=== PATIENT | male | born 1995 | race Caucasian/White ===

== ENCOUNTER 2020-01-19 03:01 | Emergency (ER) | payer OTHER, SELFPAY ==
[2020-01-19 03:02] VITALS: BP 109/62; PULSE 73; RESP 22; TEMP 36.4; O2SAT 100; BMI 26.6
--- NOTE | 2020-01-19 05:34 | ED.PSYCH ---
HPI - Psych General Chief Complaint: Neuro Symptoms/Deficit Stated Complaint: diff speaking Time Seen by Provider: 01/19/20 03:14 Source: patient Mode of arrival: ambulatory Limitations: no limitations History of Present Illness HPI Narrative: This is a 24-year-old male who is a poor historian but states that he when out on the balcony to smoke which he later clarified was marijuana and subsequently developed feeling of uncertainty which was accompanied by palpitations and chest tightness as well as feeling like he could not get enough oxygen and he began breathing faster and then developed tingling in bilateral upper extremities. Patient denies any past medical history of anxiety, or medications. However, later he then endorses that he did speak with a therapist but does not know who and does not know when. Otherwise, he denies fevers, chills, nausea, vomiting, GI symptoms, or symptoms. Related Data Previous Rx's Medication Instructions Recorded hydroxyzine HCl 25 mg PO TID PRN #10 tab 01/19/20 Allergies Allergy/AdvReac Type Severity Reaction Status Date / Time sulfamethoxazole Allergy Unknown UNKNOWN Unverified 10/23/19 16:39 [From BACTRIM] trimethoprim [From BACTRIM] Allergy Unknown UNKNOWN Unverified 10/23/19 16:39 Review of Systems Review of Systems: Pertinent positives and negatives as stated in HPI 10 point review of systems otherwise negative. PMFSH Past Medical History Source: nursing notes reviewed Medical History Anxiety Asthma Depression Hypertension Social History Social History Advance Directives: No Physical Exam Vital Signs: Vital Signs: Last Vital Signs Temp 97.5 F 01/19/20 03:02 Pulse 73 01/19/20 03:02 Resp 22 H 01/19/20 03:02 BP 109/62 01/19/20 03:02 Pulse Ox 100 01/19/20 03:02 Body Mass Index 26.6 VITAL SIGNS: Reviewed. GENERAL: Well developed, well nourished, in no acute distress. HEAD: Normocephalic/atraumatic, EYES: PERRLA, EOMI intact without pain, no nystagmus/pallor/icterus noted EARS: Ext canals without abnormality, TMs non-bulging and non-erythematous NOSE: Nares patent bilateral OROPHARYNX: no oral lesions noted, posterior pharynx clear and non-erythematous without noted tonsillar enlargement/erythema/exudates NECK: Supple, no adenopathy LUNGS: Normal breath sounds. No adventitious sounds or accessory muscle use. SpO2<100> CARDIOVASCULAR: Regular rate and rhythm without noted murmurs, no JVD or lower extremity edema. ABDOMEN: Soft, non-tender, non-distended with bowel sounds. No rigidity. No guarding. No palpable masses or hernias noted MUSCULOSKELETAL: No tenderness, deformities, or effusions noted on gross inspection. EXTREMITIES: No cyanosis, clubbing or edema. SKIN: Inspection of the skin reveals no rashes, ulcerations, jaundice, pallor, or petechiae. NEUROLOGIC: Alert and oriented x 4. Strength and sensation to light touch were grossly intact x 4. PSYCH: Flat affect Course Course Course Narrative: This is a 24-year-old male with history and clinical presentation consistent with carpal pedal symptoms secondary to hyperventilation after having smoked marijuana. Patient is reluctant in sharing his psychiatric history and has changed his story a few times. Will evaluate for any underlying medical abnormalities, but feel that this is secondary to underlying history of depression anxiety likely exacerbated by marijuana use. -labs, UA, U tox, POC glucose On review of all investigation there are no acute findings to suggest electrolyte or infectious etiologies for patient's symptoms. Patient denies any intent to harm himself but would like to get references for outpatient help in talking to somebody. MDM - Psych Restraints Face to Face Assessment: Face to Face Assessment: Current Situation: After assessment of the patient, a review of the pertinent medical record and a discussion with nursing staff, I feel the patient requires a restrain intervention. Reaction To: [] Medical Condition: [] Behavioral State: [] Continued Need: [] Lab Data Result diagrams: 01/19/20 06:02 01/19/20 06:02 Labs: Lab Results 01/19/20 01/19/20 01/19/20 Range/Units 06:02 06:02 06:02 WBC 10.1 (4.8-10.8) X10*3/uL RBC 4.93 (4.60-5.80) X10*6/uL Hgb 15.0 (14.0-18.0) g/dl Hct 43.6 (42-52) % MCV 88.4 (80-98) fL MCH 30.4 (27.0-33.0) pg MCHC 34.4 (31.0-36.0) g/dl RDW 13.2 (11.0-16.0) % Plt Count 191 (160-400) X10*3/uL MPV 10.4 (9.4-12.4) fL Immature Gran % (Auto) 0.2 (0.0-0.4) % Neut % (Auto) 81.6 H (45-73) % Lymph % (Auto) 10.4 L (20-40) % [place] % (Auto) 7.0 (2-11) % Eos % (Auto) 0.4 (0-4) % Baso % (Auto) 0.4 (0-2) % Lymph # (Auto) 1.1 L (1.2-4.9) X10*3/uL [place] # (Auto) 0.7 (0.1-1.2) X10*3/uL Eos # (Auto) 0.0 (0.0-0.4) X10*3/uL Baso # (Auto) 0.0 (0.0-0.2) X10*3/uL Abs Immat Gran (auto) 0.02 (0.00-0.03) X10*3/uL Absolute Neuts (auto) 8.2 (2.0-8.3) X10*3/uL Absolute Nucleated RBC 0.000 (0.0-0.012) X10*3/uL Nucleated RBC % (auto) 0.0 (0.0-0.2) /100WBC Sodium 140 (135-145) mmol/L Potassium 3.7 (3.3-5.1) mmol/l Chloride 104 (96-108) mmol/L Carbon Dioxide 29 (22-29) mmol/L Anion Gap 11 L (12-20) BUN 15 (9-16) mg/dL Creatinine 0.99 (0.5-1.4) mg/dL Estim Creat Clear Calc 102.9 Estimated GFR > 60 POC Glucose (60-115) mg/dL Random Glucose 106 (60-115) mg/dL Calcium 9.0 (8.4-10.2) mg/dL Total Bilirubin 0.6 (0.0-1.0) mg/dL AST 23 (5-37) U/L ALT 19 (0-40) U/L Alkaline Phosphatase 79 (39-117) U/L Total Protein 7.3 (6.5-8.0) g/dL Albumin 4.5 (3.5-5.0) g/dL Urine Opiates Screen Not Detected (Not Detect) Ur Barbiturates Screen Not Detected (Not Detect) Ur Phencyclidine Scrn Not Detected (Not Detect) Ur Amphetamines Screen Not Detected (Not Detect) U Benzodiazepines Scrn Not Detected (Not Detect) Urine Cocaine Screen Not Detected (Not Detect) U Marijuana (THC) Screen POSITIVE H (Not Detect) 01/19/20 Range/Units 06:39 WBC (4.8-10.8) X10*3/uL RBC (4.60-5.80) X10*6/uL Hgb (14.0-18.0) g/dl Hct (42-52) % MCV (80-98) fL MCH (27.0-33.0) pg MCHC (31.0-36.0) g/dl RDW (11.0-16.0) % Plt Count (160-400) X10*3/uL MPV (9.4-12.4) fL Immature Gran % (Auto) (0.0-0.4) % Neut % (Auto) (45-73) % Lymph % (Auto) (20-40) % [place] % (Auto) (2-11) % Eos % (Auto) (0-4) % Baso % (Auto) (0-2) % Lymph # (Auto) (1.2-4.9) X10*3/uL [place] # (Auto) (0.1-1.2) X10*3/uL Eos # (Auto) (0.0-0.4) X10*3/uL Baso # (Auto) (0.0-0.2) X10*3/uL Abs Immat Gran (auto) (0.00-0.03) X10*3/uL Absolute Neuts (auto) (2.0-8.3) X10*3/uL Absolute Nucleated RBC (0.0-0.012) X10*3/uL Nucleated RBC % (auto) (0.0-0.2) /100WBC Sodium (135-145) mmol/L Potassium (3.3-5.1) mmol/l Chloride (96-108) mmol/L Carbon Dioxide (22-29) mmol/L Anion Gap (12-20) BUN (9-16) mg/dL Creatinine (0.5-1.4) mg/dL Estim Creat Clear Calc Estimated GFR POC Glucose 124 H (60-115) mg/dL Random Glucose (60-115) mg/dL Calcium (8.4-10.2) mg/dL Total Bilirubin (0.0-1.0) mg/dL AST (5-37) U/L ALT (0-40) U/L Alkaline Phosphatase (39-117) U/L Total Protein (6.5-8.0) g/dL Albumin (3.5-5.0) g/dL Urine Opiates Screen (Not Detect) Ur Barbiturates Screen (Not Detect) Ur Phencyclidine Scrn (Not Detect) Ur Amphetamines Screen (Not Detect) U Benzodiazepines Scrn (Not Detect) Urine Cocaine Screen (Not Detect) U Marijuana (THC) Screen (Not Detect) Discharge Plan Discharge Clinical Impression: Anxiety reaction Patient Disposition: Home, Self-Care Instructions: Anxiety (ED) Additional Instructions: Please do not hesitate to return to the emergency room since you have any worsening depressive symptoms, feelings like he want to harm yourself or others. You have been provided with referral information as a resource to speak to somebody in the outpatient setting. Prescriptions: New hydroxyzine HCl 25 mg tablet 25 mg PO TID PRN (Reason: anxiety) Qty: 10 RF: 0 Referrals: [facility] [Physician] - 2 days (Please evaluate and treat for history depression as patient wishes to speak with someone in the outpatient setting.)
[2020-01-19 06:08] LABS: Basophils Percent Auto 0.4 % (0-2); Eosinophils Percent Auto 0.4 % (0-4); Hematocrit 43.6 % (42-52); Imm Gran Abs Auto 0.02 X10*3/uL (0.00-0.03); Imm Gran Pct Auto 0.2 % (0.0-0.4); Lymphocytes Absolute Auto 1.1 X10*3/uL (1.2-4.9); Lymphocytes Percent Auto 10.4 % (20-40); MANUAL DIFF FLAG NO; Mean Corpuscular HGB Conc 34.4 g/dl (31.0-36.0); Mean Corpuscular Hemoglobin 30.4 pg (27.0-33.0); Mean Corpuscular Volume 88.4 fL (80-98); Mean Platelet Volume 10.4 fL (9.4-12.4); Monocytes Absolute Auto 0.7 X10*3/uL (0.1-1.2); Neutrophils Absolute Auto 8.2 X10*3/uL (2.0-8.3); Neutrophils Percent Auto 81.6 % (45-73); Platelet Count 191 X10*3/uL (160-400); Red Blood Count 4.93 X10*6/uL (4.60-5.80); Red Cell Distribution Width 13.2 % (11.0-16.0); White Blood Count 10.1 X10*3/uL (4.8-10.8)
[2020-01-19 06:42] LABS: Glucose, Whole Blood 124 mg/dL (60-115)
[2020-01-19 06:44] LABS: Amphetamine Screen Urine Not Detected (Not Detect); Barbiturates, Urine Not Detected (Not Detect); Benzodiazepines Screen Urine Not Detected (Not Detect); Cannabinoid Screen Urine POSITIVE (Not Detect); Cocaine Screen Urine Not Detected (Not Detect); Opiate Screen Urine Not Detected (Not Detect); Phencyclidine Screen Urine Not Detected (Not Detect)
[2020-01-19 06:47] LABS: Alanine Aminotransferase 19 U/L (0-40); Albumin Level 4.5 g/dL (3.5-5.0); Alkaline Phosphatase 79 U/L (39-117); Anion Gap 11 (12-20); Aspartate Amino Transferase 23 U/L (5-37); Bilirubin Total 0.6 mg/dL (0.0-1.0); Blood Urea Nitrogen 15 mg/dL (9-16); Carbon Dioxide 29 mmol/L (22-29); Chloride 104 mmol/L (96-108); Creatinine Clr Calc Pharmacy 102.9; Estimated Glomerular Filt Rate > 60; Glucose Random 106 mg/dL (60-115); Potassium 3.7 mmol/l (3.3-5.1); Sodium 140 mmol/L (135-145); Total Protein 7.3 g/dL (6.5-8.0)
[2020-01-19] MEDS: hydrOXYzine HCL 50 MG TABLET PO (07:41)
== END 2020-01-19 07:46 | disposition home or self-care (01) ==
PROVIDERS: Emergency Provider Student in an Organized Health Care Education/Training Program
DX: F41.1 Generalized anxiety disorder (principal); I10 Essential (primary) hypertension; F12.90 Cannabis use, unspecified, uncomplicated
CPT/HCPCS: 36415; 80053; 80307; 82947; 85025; 99283

== ENCOUNTER 2022-12-11 09:36 | Outpatient (AMB) | payer OTHER, SELFPAY ==
--- NOTE | 2022-12-11 10:41 | AM.OFFWIN_ITS ---
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 Patient states pain is moving from the leg up also began Sunday morning, Pain started from a tic bite. Patient Tobacco Use Status: Never used Tobacco Allergies sulfamethoxazole [From BACTRIM] Allergy (Unknown, Verified 12/11/22 10:47) UNKNOWN trimethoprim [From BACTRIM] Allergy (Unknown, Verified 12/11/22 10:47) UNKNOWN Do you need a note to return to daycare/school/sports/work: Yes HPI SEARCH MARKETING COORDINATOR/left leg pain(lobby) 2 HPI0 Details Patient presents with discomfort in his left inner thigh since yesterday. As he was inspecting his leg he noticed a tick attached to his distal thigh. He is unsure how long the tick was in place it was engorged she removed it easily this occurred yesterday.. He notes he continues to have tenderness radiating to his groin. He denies groin pain prior to the tick. Denies testicular pain or swelling or other symptoms. Denies headache, fever, joint pain, other rash. [facility] Medical History Anxiety Asthma Depression Hypertension Social History Patient Tobacco Use Status: Never used Tobacco Review of Systems Const Reports as per HPI and Reports no additional complaints Reports no additional complaints and Reports as per HPI Musc Reports no additional complaints and Reports as per HPI Skin/Breast Denies lesions Neuro Reports no additional complaints and Reports as per HPI Physical Exam Vital Signs: Last Vital Signs Pulse 73 12/11/22 10:47 BP 132/80 12/11/22 10:47 Pulse Ox 99 12/11/22 10:47 Oxygen Delivery Method Room Air 12/11/22 10:47 BMI result Body Mass Index 27.1 Const General: cooperative, comfortable and no acute distress Orientation/consciousness: patient oriented x3 Resp Effort & Inspection: normal respiratory effort Auscultation: clear to auscultation bilaterally Cardio Rate: regular rate Rhythm: regular rhythm Heart sounds: S1 normal heart sound present and S2 normal heart sound present Male General Exam: No edema, No erythema, No hernia and No inguinal lymphadenopathy Scrotum: scrotum normal Testes: Testes normal Neuro General: patient oriented x3 Extrem Upper/lower leg/hip images: 2 1. Small puncture wound without signs or symptoms infection consistent with tick bite Assessment & Plan Assessment & Plan (1) Tick bite: Code(s): W57.XXXA - Bitten or stung by nonvenomous insect and other nonvenomous arthropods, initial encounter Qualifiers: Encounter type: initial encounter Site of tick bite: thigh Laterality: left Qualified Code(s): S70.362A - Insect bite (nonvenomous), left thigh, initial encounter; W57.XXXA - Bitten or stung by nonvenomous insect and other nonvenomous arthropods, initial encounter Plan: Given Lyme disease being endemic in our local area and he is experiencing some diffuse pain will treat with doxycycline b.i.d. times 14 days. Return to clinic if he develops further symptoms or symptoms do not improve. Medications: New 2 doxycycline hyclate 100 mg PO BID 14 days 28 caps 0RF Coding Level of Care Code Est Pt Level 3 (04985) Diagnoses Tick bite of left thigh, initial encounter S70.362A; W57.XXXA Encounter type: initial encounter Site of tick bite: thigh Laterality: left
[2022-12-11 10:47] VITALS: BP 132/80; PULSE 73; O2SAT 99; BMI 27.1
== END 2022-12-11 11:00 | disposition home or self-care (01) ==
PROVIDERS: Visit Provider Physician Assistant
DX: S70.362A Insect bite (nonvenomous), left thigh, initial encounter (principal); W57.XXXA Bitten or stung by nonvenomous insect and other nonvenomous arthropods, initial encounter
CPT/HCPCS: 99213

== ENCOUNTER 2023-06-12 22:24 | Emergency (ER) | payer OTHER, SELFPAY ==
--- NOTE | ~2023-06-12 | CT_ITS ---
EXAMINATION: CT ABDOMEN AND PELVIS WITH CONTRAST CLINICAL INFORMATION: Reason for Exam Periumbilical pain with nausea and vomiting COMPARISON: 06/25/2017 TECHNIQUE: Multidetector volumetric images were obtained from the superior aspect of the liver through the pubic symphysis following administration 85 mL of Omnipaque 350 intravenous contrast. Sagittal and coronal reformatted images were obtained on the technologist's workstation. Oral contrast: No This CT examination was performed using dose optimization techniques as appropriate, variously including the following: *Automated exposure control *Adjustment of mA and/or kV according to patient size (this includes techniques or standardized protocols for targeted exams where dose is matched to indication/reason for exam; i.e. extremities or head) *Use of iterative reconstruction technique DLP: 439 mGy-cm FINDINGS: LUNG BASES: The visualized lung bases are unremarkable. LIVER, GALLBLADDER, AND BILIARY TREE: The liver is normal in size, shape, and attenuation. A small focal region of hypoattenuation adjacent to the falciform ligament could be due to focal fatty infiltration or alterations in hepatic perfusion. No biliary ductal dilatation is present. The gallbladder is physiological distended with no densely calcified gallstones. PANCREAS: Unremarkable. SPLEEN: Unremarkable. ADRENAL GLANDS: Unremarkable. KIDNEYS AND URETERS: Mildly prominent bilateral extrarenal pelvises, right greater than left and similar to prior, without appreciable obstructing calculus. Bilateral nephrograms are symmetric. BLADDER: Unremarkable. GASTROINTESTINAL TRACT: No evidence of bowel obstruction or significant wall thickening. Fluid is seen within some segments of the colon, a finding which can be associated with diarrhea. Appendix appears nondilated. No free fluid or free air is seen. ABDOMINAL WALL: No significant hernia is appreciated. LYMPH NODES: Normal. VASCULAR: Unremarkable. PELVIC VISCERA: Unremarkable. OSSEOUS STRUCTURES: Unremarkable. CT/CT abdomen pelvis w IV con IMPRESSION: 1. No acute findings identified in the abdomen/pelvis. Fluid is seen within some segments of the colon, a finding which can be associated with diarrhea. 2. Redemonstrated prominent bilateral renal pelvises, right greater than left and without significant change from 06/25/2017.
[2023-06-12 22:36] VITALS: BP 135/86; PULSE 83; RESP 20; TEMP 35.9; O2SAT 98; BMI 29.9
[2023-06-12] MEDS: Ondansetron ODT 4 MG TAB.RAPDIS TRANSLINGU (22:40)
[2023-06-12 23:32] LABS: MANUAL DIFF FLAG NO
[2023-06-12 23:35] LABS: Basophils Percent Auto 0.3 % (0-2); Eosinophils Percent Auto 0.6 % (0-4); Hematocrit 44.2 % (42.0-52.0); Hemoglobin 15.1 g/dl (14.0-18.0); Imm Gran Abs Auto 0.02 X10*3/uL (0.00-0.03); Imm Gran Pct Auto 0.3 % (0.0-0.4); Lymphocytes Absolute Auto 0.5 X10*3/uL (1.2-4.9); Lymphocytes Percent Auto 8.7 % (20-40); Mean Corpuscular HGB Conc 34.2 g/dl (31.0-36.0); Mean Corpuscular Hemoglobin 29.5 pg (27.0-33.0); Mean Corpuscular Volume 86.5 fL (80.0-98.0); Mean Platelet Volume 10.4 fL (9.4-12.4); Monocytes Absolute Auto 0.4 X10*3/uL (0.1-1.2); Monocytes Percent Auto 6.9 % (2-11); Neutrophils Absolute Auto 5.2 x10*3/uL (2.0-8.3); Neutrophils Percent Auto 83.2 % (45-73); Platelet Count 237 X10*3/uL (160-400); Red Blood Count 5.11 X10*6/uL (4.60-5.80); Red Cell Distribution Width 13.4 % (11.0-16.0); White Blood Count 6.2 X10*3/uL (4.8-10.8)
[2023-06-12 23:49] LABS: Alanine Aminotransferase 17 U/L (0-40); Albumin Level 4.3 g/dL (3.5-5.0); Alkaline Phosphatase 80 U/L (39-117); Anion Gap 15 (12-20); Aspartate Amino Transferase 19 U/L (5-37); Bilirubin Total 0.9 mg/dL (0.0-1.0); Blood Urea Nitrogen 12 mg/dL (9-16); Calcium 9.3 mg/dL (8.4-10.2); Carbon Dioxide 23 mmol/L (22-29); Chloride 105 mmol/L (96-108); Creatinine Clr Calc Pharmacy 112.8; Estimated Glomerular Filt Rate > 60; Glucose Random 100 mg/dL (60-115); Lipase 13 U/L (8-78); Magnesium 1.5 mg/dL (1.6-2.6); Potassium 3.4 mmol/L (3.3-5.1); Sodium 140 mmol/L (135-145); Total Protein 7.7 g/dL (6.5-8.0)
[2023-06-13 00:12] LABS: Influenza A PCR NEGATIVE (Negative); Influenza B PCR NEGATIVE (Negative); Resp Syncy Virus RNA Qual PCR NEGATIVE (Negative); SARS COV2 PCR INHOUSE NEGATIVE (Negative)
[2023-06-13 00:56] VITALS: BP 128/66; PULSE 66; RESP 18; TEMP 37; O2SAT 94
--- NOTE | 2023-06-13 01:14 | PC.NURSE ---
n/v/d all day. pt reports trying to eat light snack prior to come in. unable to keep food or pedialyte down. reports vomiting before ED arrival. pt visibly uncomfortable, unable to sit still d/t pain. pain with palpation, upper abd. reports zofran helped minimally
[2023-06-13] MEDS: ondansetron HCL 4 MG/2 ML VIAL IVPUSH (02:09)
[2023-06-13] MEDS: 0.9 % Sodium Chloride 1,000 ML 999 ML IV (02:10)
--- NOTE | 2023-06-13 02:12 | ED_ITS ---
HPI - Abdominal Pain General Chief Complaint: Nausea/Vomiting/Diarrhea Stated Complaint: vomiting Time Seen by Provider: 06/13/23 01:10 Source: patient Mode of arrival: ambulatory History of Present Illness HPI narrative: 27-year-old male reports that he woke up this morning between 3-04:00 with significant periumbilical pain and began having multiple episodes of nausea, vomiting throughout the day as well as diarrhea, denies any contaminated food consumption or sick contacts, states he has been having chills and subjective fevers, denies alcohol or marijuana use. Related Data Previous Rx's ?Medication ?Instructions ?Recorded doxycycline hyclate 100 mg capsule 100 mg PO BID 14 days #28 caps 12/11/22 ondansetron 4 mg disintegrating 4 mg PO Q8H PRN nausea and 06/13/23 tablet vomiting 4 days #7 tabs Allergies Allergy/AdvReac Type Severity Reaction Status Date / Time sulfamethoxazole Allergy Unknown UNKNOWN Verified 06/12/23 22:38 [From BACTRIM] trimethoprim [From BACTRIM] Allergy Unknown UNKNOWN Verified 06/12/23 22:38 Review of Systems Review of Systems Pertinent positives and negatives as stated in HPI PMFSH Past Medical History Source: nursing notes reviewed Medical History Anxiety Depression Asthma Hypertension Social History Social History Patient Tobacco Use Status: Never used Tobacco Smoked in Last 30 Days: No Use of substances other than those prescribed or required for medical reasons: No Advance Directives: No Advance Directives Information Provided: Yes Do you have a plan to hurt others: No Plan Physical Exam ED Vital Signs: Vital Signs - 24 hr 06/12/23 22:36 06/13/23 00:56 06/13/23 03:11 Temperature 96.6 F L 98.6 F 96.8 F Pulse Rate 83 66 75 Respiratory Rate 20 18 16 Blood Pressure 135/86 128/66 142/70 H Pulse Oximetry 98 94 100 Oxygen Delivery Method Room Air Room Air Room Air BMI result Body Mass Index 29.9 VITAL SIGNS: Reviewed. GENERAL: Well developed, well nourished, in no acute distress. HEAD: Normocephalic/atraumatic EYES: PERRLA, EOMI LUNGS: Normal breath sounds. No adventitious sounds or accessory muscle use. SpO2<94> CARDIOVASCULAR: Regular rate and rhythm without noted murmurs ABDOMEN: Soft, periumbilical/right lower quadrant, non-distended with bowel sounds. MUSCULOSKELETAL: No tenderness, deformities, or effusions noted on gross inspection. EXTREMITIES: No cyanosis, clubbing or edema. SKIN: Inspection of the skin reveals no rashes NEUROLOGIC: Alert and oriented x 4. Strength and sensation to light touch were grossly intact x 4. Medical Decision Making Medical Decision Making [facility] Narrative: 27-year-old male with history and clinical presentation, DDX: Gastroenteritis, food poisoning, appendicitis I reviewed all investigations and hematologic indices negative for leukocytosis/anemia/thrombocytopenia. Chemistry indices negative for any acute findings other than low magnesium which was repleted with 400 mg of magnesium oxide. Viral testing negative for influenza/RSV/COVID-19. Patient received IV fluids, antiemetics, pain medication. CT scan demonstrates evidence to suggest a gastroenteritis, otherwise no mention of colitis/appendicitis. P.o. challenge Differential Diagnosis Differential Diagnoses: The differential diagnosis associated with the presentation includes Please see the discussion above Admission/Observation Consideration of admission/observation: Escalation of care including admission/observation considered Please see the discussion above Lab Data [facility] Lab Attestation statement: I reviewed the patient's lab results. Please see the discussion above 06/12/23 23:13 06/12/23 23:13 Labs: Lab Results 06/12/23 06/13/23 Range/Units 23:13 02:04 WBC 6.2 (4.8-10.8) X10*3/uL RBC 5.11 (4.60-5.80) X10*6/uL Hgb 15.1 (14.0-18.0) g/dl Hct 44.2 (42.0-52.0) % MCV 86.5 (80.0-98.0) fL MCH 29.5 (27.0-33.0) pg MCHC 34.2 (31.0-36.0) g/dl RDW 13.4 (11.0-16.0) % Plt Count 237 (160-400) X10*3/uL MPV 10.4 (9.4-12.4) fL Immature Gran % (Auto) 0.3 (0.0-0.4) % Neut % (Auto) 83.2 H (45-73) % Lymph % (Auto) 8.7 L (20-40) % [place] % (Auto) 6.9 (2-11) % Eos % (Auto) 0.6 (0-4) % Baso % (Auto) 0.3 (0-2) % Lymph # (Auto) 0.5 L (1.2-4.9) X10*3/uL [place] # (Auto) 0.4 (0.1-1.2) X10*3/uL Eos # (Auto) 0.0 (0.0-0.4) X10*3/uL Baso # (Auto) 0.0 (0.0-0.2) X10*3/uL Abs Immat Gran (auto) 0.02 (0.00-0.03) X10*3/uL Absolute Neuts (auto) 5.2 (2.0-8.3) x10*3/uL Absolute Nucleated RBC 0.000 (0.0-0.012) X10*3/uL Nucleated RBC % (auto) 0.0 (0.0-0.2) /100WBC Sodium 140 (135-145) mmol/L Potassium 3.4 (3.3-5.1) mmol/L Chloride 105 (96-108) mmol/L Carbon Dioxide 23 (22-29) mmol/L Anion Gap 15 (12-20) BUN 12 (9-16) mg/dL Creatinine 0.99 (0.5-1.4) mg/dL Estim Creat Clear Calc 112.8 Estimated GFR > 60 Random Glucose 100 (60-115) mg/dL Lactic Acid 1.0 (0.5-2.0) mmol/L Calcium 9.3 (8.4-10.2) mg/dL Magnesium 1.5 L (1.6-2.6) mg/dL Total Bilirubin 0.9 (0.0-1.0) mg/dL AST 19 (5-37) U/L ALT 17 (0-40) U/L Alkaline Phosphatase 80 (39-117) U/L Total Protein 7.7 (6.5-8.0) g/dL Albumin 4.3 (3.5-5.0) g/dL Lipase 13 (8-78) U/L Influenza Type A (PCR) NEGATIVE (Negative) Influenza Type B (PCR) NEGATIVE (Negative) RSV RNA Qual (PCR) NEGATIVE (Negative) SARS-CoV-2 RNA (RT-PCR) NEGATIVE (Negative) Radiology Impression Discussion of test interpretation with radiology: I have reviewed the radiologist's reading. Radiologist Impression: Please see the discussion above External Record Review External record reviewed: Outpatient record and Prior outpatient labs Medications Administered Discontinued Medications Generic Name Dose Route Start Last Admin Trade Name Freq PRN Reason Stop Dose Admin Sodium Chloride 1,000 mls @ 999 mls/hr 06/13/23 02:00 06/13/23 03:12 Ns IV 06/13/23 03:00 Infused .Q1H1M JOSE Infusion Iohexol 85 ml 06/13/23 02:48 06/13/23 02:49 Iohexol 350 Mg/Ml 100 Ml Infus..Btl IV 06/13/23 02:49 85 ml ONCE ONE Administration Ketorolac Tromethamine 15 mg 06/13/23 02:55 06/13/23 02:58 Ketorolac Tromethamine 30 Mg/Ml Vial IVPUSH 06/13/23 02:56 15 mg ONCE ONE Administration Ondansetron HCl 4 mg 06/12/23 22:39 06/12/23 22:40 Ondansetron Odt 4 Mg Tab.Rapdis TRANSLINGU 06/12/23 22:40 4 mg ONCE ONE Administration Ondansetron HCl 4 mg 06/13/23 01:50 06/13/23 02:09 Ondansetron Hcl 4 Mg/2 Ml Vial IVPUSH 06/13/23 01:51 4 mg ONCE ONE Administration Critical Care Time Critical Care Time Critical Care Time: Yes Total Critical Care Time: 30 Attestation: I personally attest to this time spent taking care of the patient. Discharge Plan Discharge Clinical Impression: Gastroenteritis, Dehydration, Hypomagnesemia Patient Disposition: Home, Self-Care Instructions: Dehydration (ED), Gastroenteritis (ED), Hypomagnesemia (ED), Nutrition Tips for Relief of Diarrhea (ED) Additional Instructions: Follow-up with your primary care doctor. Prescriptions: New ondansetron 4 mg tablet,disintegrating 4 mg PO Q8H PRN (Reason: nausea and vomiting) 4 Days Qty: 7 0RF No Action doxycycline hyclate 100 mg capsule 100 mg PO BID 14 Days Qty: 28 0RF Print Language: Arabic
--- NOTE | 2023-06-13 02:22 | PC.NURSE ---
lab work obtained, IV placed, pt medicated per APR. pt waiting for CT
[2023-06-13] MEDS: iohexoL 350 MG/ML 100 ML INFUS..BTL 85 ML IV (02:49)
[2023-06-13] MEDS: Ketorolac Tromethamine 30 MG/ML VIAL 15 MG IVPUSH (02:58)
[2023-06-13 03:11] VITALS: BP 142/70; PULSE 75; RESP 16; TEMP 36; O2SAT 100
[2023-06-13 05:00] VITALS: BP 142/67; PULSE 70; RESP 18; TEMP 36.4; O2SAT 100
[2023-06-13] MEDS: Magnesium Oxide 400 MG TABLET PO (05:01)
--- NOTE | 2023-06-13 05:07 | PC.NURSE ---
pt PO intake of water and saltines. pt reports feeling better, no nausea or abd pain
[2023-06-13 05:10] VITALS: BP 142/67; PULSE 70; RESP 18; TEMP 36.4; O2SAT 100
== END 2023-06-13 05:10 | disposition home or self-care (01) ==
PROVIDERS: Emergency Provider Student in an Organized Health Care Education/Training Program
DX: K52.9 Noninfective gastroenteritis and colitis, unspecified (principal); E86.0 Dehydration; E83.42 Hypomagnesemia; R11.2 Nausea with vomiting, unspecified; Z11.52 Encounter for screening for COVID-19; Z20.822 Contact with and (suspected) exposure to COVID-19; Z79.899 Other long term (current) drug therapy
CPT/HCPCS: 0241U; 36415; 74177; 80053; 83605; 83690; 83735; 85025; 87040; 96361; 96374; 96375; 99284; 99285; J1885; J2405; Q9967

== ENCOUNTER 2023-07-11 10:43 | Outpatient (AMB) | payer OTHER, SELFPAY ==
[2023-07-11 10:49] VITALS: BP 120/70; PULSE 76; TEMP 36.5; O2SAT 100; BMI 29.2
--- NOTE | 2023-07-11 10:49 | AM.OFFWIN_ITS ---
Intake Vital Signs 07/11/23 10:49 Height 5 ft 6 in Weight 181 lb BMI 29.2 BP 120/70 Blood Pressure Location Lt brachial Position Sitting Pulse 76 Pulse Source Pulse Oximeter Temp 97.7 F Temp Source Temporal Artery Scan Pulse Oximetry (%) 100 Oxygen Delivery Method Room Air Intake Visit Reasons: EP cough chest congestion 1month Intake Note: pt is here today for cough chest congestion started 1 month ago Patient Tobacco Use Status: Never used Tobacco Allergies sulfamethoxazole [From BACTRIM] Allergy (Unknown, Verified 07/11/23 10:52) UNKNOWN trimethoprim [From BACTRIM] Allergy (Unknown, Verified 07/11/23 10:52) UNKNOWN Do you need a note to return to daycare/school/sports/work: No HPI HPI Comments History of Present Illness Details 27-year-old male presents today complain ing of cough x4 weeks. It started with a upper respiratory infection which has since resolved but now just has a cough particularly morning and evening. Patient denies any fever chills sweats congestion shortness for breath chest pain or sinus pressure PFSH Medical History Anxiety Depression Asthma Hypertension Social History Patient Tobacco Use Status: Never used Tobacco Review of Systems Const All systems reviewed & are unremarkable except as noted in HPI and below Eyes Reports no additional complaints ENT Reports no additional complaints Card Reports no additional complaints Resp Reports no additional complaints GI Reports no additional complaints Physical Exam Vital Signs: Last Vital Signs Temp 97.7 F 07/11/23 10:49 Pulse 76 07/11/23 10:49 BP 120/70 07/11/23 10:49 Pulse Ox 100 07/11/23 10:49 Oxygen Delivery Method Room Air 07/11/23 10:49 BMI result Body Mass Index 29.2 Const General: healthy appearing and no acute distress HEENT Head: Yes normal to inspection, Yes normocephalic and Yes atraumatic Ears: hearing grossly normal bilaterally, external ears normal, TM's normal b ilaterally and EAC's normal General nose exam: Normal external nose present Face and sinus: Yes normal facial exam and Yes sinuses nontender Throat: Yes posterior oropharynx normal Resp Effort & Inspection: normal respiratory effort Auscultation: clear to auscultation bilaterally Cardio Rate: regular rate Rhythm: regular rhythm Heart sounds: S1 normal heart sound present and S2 normal heart sound present Assessment & Plan Assessment & Plan (1) Cough: Code(s): R05.9 - Cough, unspecified Plan: The patient was put on a course of prednisone and fall follow up with his PCP Plan See plan Medications: New prednisone prednisone 5 mg: take 8 tablets (40 mg) on Day 1; 7 tablets (35 mg) on Day 2; then decrease by 1 tablet every day until finished PO 36 ea 0RF Coding Level of Care Code Est Pt Level 3 (90474) Diagnoses Cough R05.9
== END 2023-07-11 11:21 | disposition home or self-care (01) ==
PROVIDERS: Visit Provider Physician Assistant Medical
DX: R05.9 Cough, unspecified (principal)
CPT/HCPCS: 99213

== ENCOUNTER 2024-02-05 11:20 | Outpatient (AMB) | payer OTHER, SELFPAY ==
--- NOTE | 2024-02-05 11:54 | AM.OFFWIN_ITS ---
Intake Vital Signs 02/05/24 11:56 Height 5 ft 6 in Weight 169 lb BMI 27.3 BP 120/82 Blood Pressure Location Rt brachial Position Sitting Pulse 78 Pulse Source Pulse Oximeter Pulse Oximetry (%) 98 Oxygen Delivery Method Room Air Intake Visit Reasons: EP-growing pain and pressure Intake Note: Patient here for groin pain/pressure that has been present for a couple of weeks. Patient Tobacco Use Status: Never used Tobacco Allergies sulfamethoxazole [From BACTRIM] Allergy (Unknown, Verified 02/05/24 11:56) UNKNOWN trimethoprim [From BACTRIM] Allergy (Unknown, Verified 02/05/24 11:56) UNKNOWN Do you need a note to return to daycare/school/sports/work: No HPI HPI Comments History of Present Illness Details History of Present Illness - The patient is a 28-year-old male pres enting with discomfort and penile changes following a traumatic event during sexual activity. - Approximately two weeks ago, the patie nt experienced injury during intercourse, describing an abnormal bending of the penis while erect. - Consequently, he reports persistent pr essure and mild discomfort on the left side of the penis and groin, particularly during erection. - He denies painful urination, frequent urination, blood in his urine, fevers, abnormal discharge from the penis. - He does admit to waking up with cold s weats. - There has been no significant improvem ent in symptoms over the two-week duration and the patient has never had any medical issues so he is very concerned. Physical Exam General: Cooperative, healthy appearing, comfortable, no acute distress and well developed Orientation: Patient oriented x3 Limitations: No limitations Head: Normal to inspection Ears: Hearing grossly normal bilaterally Nose: Normal external nose present Face and sinus: Normal facial exam Eyes: Appearance normal, both eyes and all related structures Neck: Normal visual inspection and Yes full ROM Respiratory: Normal respiratory effort and able to speak in complete sentences. : see below Skin: No rashes or lesions noted Neuro: Patient oriented x3 Extremities: Normal to inspection [facility] Medical History Anxiety Depression Asthma Hypertension Social History Patient Tobacco Use Status: Never used Tobacco Review of Systems Const All systems reviewed & are unremarkable except as noted in HPI and below Physical Exam Vital Signs: Last Vital Signs Pulse 78 02/05/24 11:56 BP 120/82 02/05/24 11:56 Pulse Ox 98 02/05/24 11:56 Oxygen Delivery Method Room Air 02/05/24 11:56 BMI result Body Mass Index 27.3 Other: needle loom tender in room, Alma King PA-C Male General Exam: Yes normal external exam, No edema, No erythema, No lacerations and No Genital lesions present Penis: normal penis, uncircumcised, no condylomata, no ecchymosis, not edematous, not erythematous, no masses, no nodules, no papules, no pustules, no vesicles, no paraphimosis, no phimosis, no swelling, no ulcerations and No Genital lesions present Scrotum: scrotum normal, no ecchymosis, not edematous, not erythematous and testes descended bilaterally Assessment & Plan Assessment & Plan (1) Pain in the penis: Code(s): N48.89 - Other specified disorders of penis Plan: The symptoms and changes in the penis are suspected to be related to minor vascular injury or bruising due to sexual trauma. It is advised for the patient to seek assessment in an emergency department if symptoms persist, including potential ultrasound imaging to evaluate penile vasculature. Establishing care with a primary physician is recommended. If symptoms do not improve, a follow-up with a urologist or ED may be necessary to ensure no further complications. Patient was not pleased with my assessment to wait and watch and prefers to go t o the ED immediately - called [facility] [place] [place] ED. Patient was informed and verbally consented to the use of an ambient scribe for clinic note documentation during this visit. Coding Level of Care Code New Pt Level 5 (80535) Diagnoses Pain in the penis N48.89
[2024-02-05 11:56] VITALS: BP 120/82; PULSE 78; O2SAT 98; BMI 27.3
== END 2024-02-05 12:37 | disposition home or self-care (01) ==
PROVIDERS: Visit Provider Physician Assistant
DX: N48.89 Other specified disorders of penis (principal)

== ENCOUNTER 2024-12-25 02:47 | Emergency (ER) | payer SELFPAY ==
--- NOTE | ~2024-12-25 | XR_ITS ---
CLINICAL HISTORY: Crush Injury; Decreased Movement 2 view right forearm Comparison: None provided Findings: There is an acute avulsion fracture of the olecranon. No other acute fractures. No dislocations. No radiopaque foreign body. No significant degenerative change. IMPRESSION: Acute avulsion fracture of the olecranon. This document has been electronically signed by: Mina Brennan MD on 12/25/2024 05:36:58
--- NOTE | ~2024-12-25 | XR_ITS ---
CLINICAL HISTORY: Crush Injury; Decreased Movement 4 view right hand Comparison: None provided Findings: Bones intact. No dislocations. No significant arthritic change. No erosions. No radiopaque foreign body. IMPRESSION: No acute findings This document has been electronically signed by: Mina Brennan MD on 12/25/2024 05:37:27
[2024-12-25 02:48] VITALS: BP 143/93; PULSE 67; RESP 20; TEMP 36.4; O2SAT 98; BMI 27.4
--- NOTE | 2024-12-25 03:08 | ED_ITS ---
HPI - General Adult General Chief complaint: Extremity Problem Stated complaint: right hand injury Time Seen by Provider: 12/25/24 03:07 Source: patient Mode of arrival: ambulatory Limitations: no limitations History of Present Illness ED Provider: Bruce GARCIA HPI narrative: The patient is a 29-year-old male presents to the ED for evaluation of worsening pain and swelling of the right hand, radiating into the right forearm. The injury occurred four days ago when the patient?s hand was caught between two metal totes at work. Since the incident, he notes decreased range of motion of t he hand and a new ?weird? numb sensation in the right forearm. He denies pain with gripping and reports intact sensation in the fingertips. He took acetaminophen (Tylenol) for pain at approximately 01:00 this morning, with partial relief. No other medications taken. Patient denies history of previous injury to the affected extremity. Related Data Allergies Allergy/AdvReac Type Severity Reaction Status Date / Time sulfamethoxazole (From Allergy Unknown UNKNOWN Verified 12/25/24 02:50 BACTRIM) trimethoprim (From BACTRIM) Allergy Unknown UNKNOWN Verified 12/25/24 02:50 Review of Systems Review of Systems: Yes all other systems are reviewed and are negative PMFSH Past Medical History Medical History Anxiety Depression Asthma Hypertension Social History Social History Patient Tobacco Use Status: Never used Tobacco Advance Directives: No Physical Exam ED Vital Signs: Vital Signs - 24 hr 12/25/24 02:48 12/25/24 04:38 Temperature 97.5 F 97.8 F Pulse Rate 67 54 Respiratory Rate 20 18 Blood Pressure 143/93 H 114/60 Pulse Oximetry 98 97 Oxygen Delivery Method Room Air Room Air BMI result Body Mass Index 27.4 CONSTITUTIONAL: The patient appears non-toxic, well nourished and in no acute distress. Vital signs as documented. HEAD: Atraumatic, normocephalic. EYES: EOMs grossly intact, pupils equal, conjunctiva clear, no exudate. ENT: Nares patent, no discharge. Airway patent, no audible stridor, visible mucosa is pink and moist without noted lesions. NECK: trachea is midline, no obvious masses or gross abnormalities. CHEST: Symmetric movement, normal appearance. LUNGS: Non-labored work of breathing. CARDIAC: No evidence of hypoperfusion. ABDOMEN: Nondistended, no obvious injury. : Deferred. EXTREMITIES: There is contusion/hematoma with small central abrasion noted to the dorsum of the right hand overlying the 1st 2nd and 3rd metacarpals, distal CSM is intact, full dexterity including opposition, 2+ radial pulse, soft forearm compartments, soft 1st webspace. Moves all other extremities spontaneously without reported pain. No other obvious injury or deformity noted. NEURO: Alert and oriented x3, CN II-XII appear grossly intact. Cerebellar Functioning grossly intact. Speech clear and appropriate. SKIN: Warm, dry, color appropriate. No rashes or lesions noted. Medications Administered Discontinued Medications Generic Name Dose Route Start Last Admin Trade Name Freq PRN Reason Stop Dose Admin Ibuprofen 600 mg 12/25/24 03:20 12/25/24 04:31 Ibuprofen 600 Mg Tablet PO 12/25/24 03:21 600 mg ONCE ONE Administration Medical Decision Making Medical Decision Making MDM Narrative: 3:19 AM 12/25/2024 (Fela GARCIA): The patient is a 29-year-old male presents to the ED for evaluation of worsening pain and swelling of the right hand, radiating into the right forearm. The injury occurred four days ago when the patient?s hand was caught between two metal totes at work. Since the incident, he notes decreased range of motion of the hand and a new ?weird? numb sensation in the right forearm. He denies pain with gripping and reports intact sensation in the fingertips. He took acetaminophen (Tylenol) for pain at approximately 01:00 this morning, with partial relief. No other medications taken. Patient denies history of previous injury to the affected extremity. On exam patient has contusion with mild swelling noted to the dorsal aspect of the right hand overlying the 1st 2nd and 3rd metacarpals, 1st webspace soft, forearm compartments are soft, distal CSM in dexterity is intact including opposition. No evidence of vascular impairment. The patient will be sent for x-ray to rule out acute fracture, we will supplement Tylenol with ibuprofen, and treat radiographic findings as needed. 6:10 AM 12/25/2024 (Fela GARCIA): The patient's hand x-ray is negative for acute fracture. The patient's forearm x-ray shows question chip avulsion fracture of the olecranon, the patient has no pain or tenderness in this area, finding is likely chronic. Patient will be discharged with supportive care. Admission/Observation Consideration of admission/observation: Escalation of care including admission/observation considered Radiology Impression Discussion of test interpretation with radiology: I have reviewed the radiologist's reading. Radiologist Impression: 2 view right forearm Comparison: None provided Findings: There is an acute avulsion fracture of the olecranon. No other acute fractures. No dislocations. No radiopaque foreign body. No significant degenerative change. IMPRESSION: Acute avulsion fracture of the olecranon. This document has been electronically signed by: Mina Brennan MD on 12/25/2024 05:36:58 4 view right hand Comparison: None provided Findings: Bones intact. No dislocations. No significant arthritic change. No erosions. No radiopaque foreign body. IMPRESSION: No acute findings This document has been electronically signed by: Mina Brennan MD on 12/25/2024 05:37:27 Prescription Management I considered prescription management with: Pain Medication Discharge Plan Discharge Clinical Impression: Contusion of hand Qualifiers: Encounter type: initial encounter Laterality: right Qualified Code(s): S60.221A - Contusion of right hand, initial encounter Patient Disposition: Home, Self-Care Instructions: Contusion in Adults (ED) Additional Instructions: Thank you for choosing [facility]'s Emergency Department for your care today. Thankfully your x-ray today showed no evidence of an acute fracture of your hand. At this time there is no indication for admission to the hospital or continued ED observation, and it is safe to discharge you home. Your symptoms are likely secondary to bruising from your crush injury. You should take alternating (staggered) doses of ibuprofen 600mg and Tylenol 1000mg every 4 hours as needed for any additional pain. Please rest the injured area, and apply ice for 20 minutes every hour. Please follow up with your primary care physician for re-evaluation, additional management of your symptoms, and continued preventative care. If you do not have a primary care physician, please call the [facility] at [phone] to establish a new primary care physician. While waiting to establish your new primary care physician, you can call our [facility] at [phone] for non-emergency needs. Please return to the emergency department if you develop a severe or sudden change in your symptoms, a fever over 100.4 that does not improve with Tylenol or Ibuprofen, recurrent vomiting, or any other new or worsening symptoms or concerns. Print Language: [place]ayan
[2024-12-25 04:38] VITALS: BP 114/60; PULSE 54; RESP 18; TEMP 36.6; O2SAT 97
[2024-12-25 06:51] VITALS: BP 114/60; PULSE 54; RESP 18; TEMP 36.6; O2SAT 97
== END 2024-12-25 06:53 | disposition home or self-care (01) ==
PROVIDERS: Emergency Provider Emergency Medicine
DX: S60.221A Contusion of right hand, initial encounter (principal); W23.2XXA Caught, crushed, jammed or pinched between a moving and stationary object, initial encounter; Y93.89 Activity, other specified; Y92.89 Other specified places as the place of occurrence of the external cause; Y99.0 Civilian activity done for income or pay; M79.641 Pain in right hand
CPT/HCPCS: 73090; 73130; 99283

== ENCOUNTER → 2024-12-25 03:08 | Outpatient (BNV) | payer SELFPAY | PROVIDERS: Emergency Provider Emergency Medicine; Visit Provider Student in an Organized Health Care Education/Training Program | DX: M79.641 Pain in right hand (principal); R22.31 Localized swelling, mass and lump, right upper limb; M79.631 Pain in right forearm; S67.21XA Crushing injury of right hand, initial encounter | CPT/HCPCS: 73090; 73130 ==